=== PATIENT | female | born 1950 ===

== ENCOUNTER 2018-07-19 10:24 | Emergency (ER) | payer OTHER ==
[2018-07-19 10:35] VITALS: BMI 30.9
[2018-07-19 10:37] VITALS: RESP 18; O2SAT 99
--- NOTE | 2018-07-19 11:09 | ED PDOC ---
Lower Extremity Pain/Injury Time Seen by Provider: 07/19/18 11:00 Chief Complaint (Nursing): Lower Extremity Problem/Injury History Per: Patient, Family History/Exam Limitations: language barrier (pt's granddaughter providing lithuanian translation) Onset/Duration Of Symptoms: Days Current Symptoms Are (Timing): Still Present Severity: Moderate Additional Complaint(s): 68 yo F h/o DM and HTN presents with bilateral knee pain ofr 1 month. Pt reports first it was the left, now both, with the right being worse. Pt did see her PMD about it and was told it was probably arthritis, but did nothing else for it. Pt reports pain is so bad she can barely walk now. Pt works 3 jobs and is constantly on her feet. She has been taking Tylenol with no relief, last dose last night. She has tried other home remedies as well with no relief. Pt denies injury, fall or twisting knees. Denies being to an orthopedist before. Denies changes in skin color, numbness or tingling, decrease motor or sensation Pmd: Dr. Palmer Past Medical History Reviewed: Nursing Documentation, Vital Signs Vital Signs: Last Vital Signs Temp 98.0 F 07/19/18 10:35 Pulse 61 07/19/18 10:35 Resp 18 07/19/18 10:35 BP 137/78 07/19/18 10:35 Pulse Ox 99 07/19/18 10:35 - Medical History PMH: Diabetes, HTN - Family History Family History: States: Unknown Family Hx - Social History Current smoker - smoking cessation education provided: No Alcohol: None Drugs: Denies - Home Medications Home Medications: Ambulatory Orders Medication Instructions Recorded Med For Gastritis 10/20/15 Naproxen [Naprosyn] 500 mg PO BID PRN #15 tablet 10/20/15 Ibuprofen [Motrin Tab] 600 mg PO Q6 PRN #20 tab 07/19/18 - Allergies Allergies/Adverse Reactions: Allergies Allergy/AdvReac Type Severity Reaction Status Date / Time No Known Allergies Allergy Verified 10/20/15 16:58 Physical Exam - Reviewed Nursing Documentation Reviewed: Yes - Physical Exam Comments: GENERALIZED APPEARANCE: Patient is awake, alert, oriented x3 in mild obvious discomfort SKIN: Warm, dry; (-) cyanosis. LOWER EXTREMITY: pulses + 2, capillary refill <2 sec, (+) mild tenderness to bilateral medial aspects of knee with mild swelling (-)erythema,(-) warmth (+)FROM (-)ligamentous laxity (-)lachmans, NVI CARDIOVASCULAR: (+) distal pulse. NEUROLOGIC: (+) distal sensation. - ECG O2 Sat by Pulse Oximetry: 99 Medical Decision Making Medical Decision Makin:00 initial eval, 68 yo active F, h/o HTN and DM, with bilateral knee pain [id number], likely arthritis, no concern for septic joint at this time * Xr bilateral knees * Toradol IM * re eval 12:15 Xray reviewed by me, no fractures or dislocations, mild DJD bilaterally amber wraps applied re eval pt ambulating with improved pain, reports continues mild pain in right knee, but pt ambulating with no difficulties Discussed results, diagnosis, treatment, return precautions and f/u with pt who is understanding, in agreement and stable for dc xray report later reviewed by me, noted small joint effusion, same treatment for pt Disposition - Clinical Impression Clinical Impression: Arthritis of knee - Patient ED Disposition Is Patient to be Admitted: No Counseled Patient/Family Regarding: Studies Performed, Diagnosis, Need For Followup, Rx Given - Disposition Referrals: [facility] [place] [Outside] Marquez Lazar III, MD [Staff Provider] - Disposition: Routine/Home Disposition Time: 12:28 Condition: IMPROVED Additional Instructions: Volver a la ED para los sntomas nuevos o empeoramiento, fiebre > 100,4, cambios en el color de la piel, incapaz de doblar las rodillas, entumecimiento u hormigueo. Seguimiento con un ortopedista wilfrid se indica en 5-7 roque. Descansa, hielo y eleva tus piernas. Use envoltura de AMBER para compresin. gianfranco ibuprofeno segn lo prescrito para el dolor y la hinchazn. Return to ED for new or worsening symptoms, fever >100.4, changes in skin color, unable to bend knees, numbness or tingling. Follow up with an orthopedist as listed in 5-7 days. Rest, ice and elevate your legs. Wear amber wrap for compression. take Ibuprofen as prescribed for pain and swelling. Prescriptions: Ibuprofen [Motrin Tab] 600 mg PO Q6 PRN #20 tab PRN Reason: Pain, Moderate (4-7) Instructions: Osteoarthritis (DC) Forms: [facility] ED School/Work Excuse Print Language: FRENCH - POA Present On Arrival: None Results - Diagnostic Imaging Results Radiology Results Knee X-Ray 07/19/18 11:05 IMPRESSION: Normal radiographs of the left knee. Knee X-Ray 07/19/18 11:05 IMPRESSION: No acute fracture. Small joint effusion common nonspecific
--- NOTE | 2018-07-19 12:46 | RAD ---
Date of service: 07/19/2018 PROCEDURE: Right Knee Radiographs. HISTORY: medial knee pain and swelling COMPARISON: None. TECHNIQUE: 2 views obtained. FINDINGS: BONES: Normal. No fracture. JOINTS: Normal. No osteoarthritis. JOINT EFFUSION: Small joint effusion. OTHER FINDINGS: None. IMPRESSION: No acute fracture. Small joint effusion common nonspecific
--- NOTE | 2018-07-19 12:47 | RAD ---
Date of service: 07/19/2018 PROCEDURE: Left Knee Radiographs. HISTORY: Pain. COMPARISON: None. TECHNIQUE: 2 views obtained. FINDINGS: BONES: Normal. No fracture. JOINTS: Normal. No osteoarthritis. JOINT EFFUSION: None. OTHER FINDINGS: None. IMPRESSION: Normal radiographs of the left knee.
[2018-07-19 12:59] VITALS: BP 138/73; PULSE 60; TEMP 98.3
== END 2018-07-19 12:57 | disposition home or self-care (01) ==
LOC: H.ER 10:24
DX: M17.9 Osteoarthritis of knee, unspecified (principal); E11.9 Type 2 diabetes mellitus without complications; I10 Essential (primary) hypertension
CPT/HCPCS: 73562; 96372; 99284; J1885